=== PATIENT | male | born 1945 | race Caucasian/White ===

== ENCOUNTER → 2019-04-16 | Outpatient (CLI) | payer OTHER, MEDICARE ==
[~2019-04-16] MED LIST: ASPIRIN325 PO; ATORVASTATIN CA40 MG PO; BYDUREON P2 MG/0.65; CELEBREX 200 M200 M1 PO; FLAX SEED OIL1000 MG PO; KLOR-CON 1010 MEQ PO; LASIX 20 MG TAB20 MG PO; LISINOPRIL5 MG PO; LOPRESSOR50 PO; METFORMIN HCL500 MG PO; NORCO 5-325 TA1 EACH PO; PACERONE 200 M200 M1 PO
== END ==
LOC: RAD 07:46
DX: J84.10 Pulmonary fibrosis, unspecified (principal); I77.810 Thoracic aortic ectasia; J98.4 Other disorders of lung

== ENCOUNTER 2020-10-21 12:43 | Inpatient (IN) | payer OTHER, MEDICARE ==
[~2020-10-21] VITALS: Ht 182.9 cm; Wt 85.3 kg
[2020-10-21 12:48] VITALS: BP 126/57
[2020-10-21 14:05] LABS: MCH 31.9 pg (26.0-34.0); MCHC 32.4 g/dL (28.0-37.0); MCV 98.2 fL (80.0-100.0); PLATELET COUNT 184 thou/uL (150-400); RBC 4.38 mil/uL (4.50-6.00); RDW 13.8 % (10.5-14.5); WBC 5.2 thou/uL (4.0-11.0)
[2020-10-21 14:13] LABS: ANION GAP 13 mmol/L (7-16); BUN 33 mg/dL (7-18); CALCIUM 8.4 mg/dL (8.5-10.1); CHLORIDE 102 mmol/L (98-107); CO2 23 mmol/L (21-32); CREATININE 1.2 mg/dL (0.7-1.3); GLUCOSE 168 mg/dL (74-106); POTASSIUM 4.6 mmol/L (3.5-5.1); SODIUM 138 mmol/L (136-145)
[2020-10-21 14:20] LABS: BE(vivo) -3.5 mmol/L (-2 to +3); HCO3 21.1 mmol/L (22.0-26.0); PCO2 36.9 mmHg (35.0-45.0); PO2 61.9 mmHg (80.0-100.0); pH 7.375 (7.360-7.450); sO2 91.4 % (92.0-98.0)
[2020-10-21 14:24] LABS: ALBUMIN 2.2 g/dL (3.4-5.0); MAGNESIUM 2.2 mg/dL (1.8-2.4); SGOT 34 U/L (15-37); SGPT 29 U/L (30-65); TOTAL PROTEIN 6.7 g/dL (6.4-8.2); TROPONIN-I <0.06 ng/mL (<0.06)
--- NOTE | 2020-10-21 14:25 | EKG ---
[facility] [place] [address] ELECTROCARDIOGRAM REPORT Name: RAMOS BENTLEY Room #: [facility]..#: [id number] Admission: 10/21/20 Attend Phys: Discharge: Date of : 45 Report #: [id number] THIS REPORT FOR: cc: Khai Blackman MD, Kirk D. MD Santiago, Patrick MD MERGED WITH [facility] ~ THIS REPORT FOR: //name// [facility] ED Test Date: 2020-10-21 Test Time: 13:46:43 Pat Name: RAMOS BENTLEY Department: Room: Gender: [place] Drawer: [facility] : 1945 Requested By: Rick Fish Order Number: [id number] MD: Ron Chu Measurements Intervals [place] Rate: 83 P: 74 SC: 171 QRS: 54 QRSD: 103 T: 69 QT: 372 QTc: 437 Interpretive Statements Sinus rhythm Probable left atrial enlargement Q's inferior leads Borderline low voltage, extremity leads Compared to ECG 03/07/2015 09:34:13 NO significant changes Electronically Signed On 10-21-2020 14:25:28 DIE TURNER by Ron Chu [email or web address] <ELECTRONICALLY SIGNED> By: Ron Chu MD, FACC 10/21/20 1425 1346 1346 Ron Chu MD, MERGED WITH [facility] /EPI
[2020-10-21 14:46] LABS: PLATELET ESTIMATE NORMAL
[2020-10-21 18:04] VITALS: BP 143/76
[2020-10-21 19:20] VITALS: BP 119/64
[2020-10-21 20:01] VITALS: BP 126/64
[2020-10-22 05:03] VITALS: BP 115/68
[2020-10-22 06:14] LABS: HEMATOCRIT 43.5 % (42.0-52.0); HEMOGLOBIN 13.9 gm/dL (14.0-18.0); MCH 31.7 pg (26.0-34.0); MCHC 31.9 g/dL (28.0-37.0); MCV 99.3 fL (80.0-100.0); RBC 4.38 mil/uL (4.50-6.00); RDW 14.1 % (10.5-14.5); WBC 3.6 thou/uL (4.0-11.0)
[2020-10-22 06:20] LABS: CALCIUM 8.5 mg/dL (8.5-10.1); CREATININE 1.2 mg/dL (0.7-1.3); POTASSIUM 4.9 mmol/L (3.5-5.1)
[2020-10-22 07:36] VITALS: BP 124/57
[2020-10-22 11:28] VITALS: BP 113/62
[2020-10-22 16:12] VITALS: BP 114/57
[2020-10-22 19:49] VITALS: BP 109/68
[2020-10-22 22:07] LABS: BE(vivo) -2.8 mmol/L (-2 to +3); HCO3 22.2 mmol/L (22.0-26.0); PCO2 39.2 mmHg (35.0-45.0); PO2 57.3 mmHg (80.0-100.0); sO2 89.2 % (92.0-98.0)
[2020-10-23 04:34] VITALS: BP 125/67
[2020-10-23 05:16] LABS: BE(vivo) -5.9 mmol/L (-2 to +3); HCO3 20.3 mmol/L (22.0-26.0); PCO2 42.2 mmHg (35.0-45.0); PO2 90.7 mmHg (80.0-100.0); sO2 96.2 % (92.0-98.0)
[2020-10-23 05:17] LABS: pH 7.299 (7.360-7.450)
[2020-10-23 05:19] LABS: CALCIUM 7.9 mg/dL (8.5-10.1); CREATININE 1.2 mg/dL (0.7-1.3); DIRECT BILIRUBIN 0.2 mg/dL (<0.1-0.2); PHOSPHORUS 3.6 mg/dL (2.5-4.9); POTASSIUM 4.2 mmol/L (3.5-5.1); TOTAL BILIRUBIN 0.5 mg/dL (0.2-1.0); TOTAL PROTEIN 6.3 g/dL (6.4-8.2)
[2020-10-23 08:02] VITALS: BP 130/41
[2020-10-23 11:41] LABS: HEMATOCRIT 43.2 % (42.0-52.0); HEMOGLOBIN 13.8 gm/dL (14.0-18.0); MCH 31.8 pg (26.0-34.0); MCHC 32.1 g/dL (28.0-37.0); MCV 99.1 fL (80.0-100.0); RBC 4.36 mil/uL (4.50-6.00); RDW 14.6 % (10.5-14.5); WBC 7.2 thou/uL (4.0-11.0)
--- NOTE | 2020-10-23 11:42 | HC ---
[facility] [place] [address] CONSULTATION Name: RAMOS BENTLEY Room #: 361-P ADM IN M.R.#: [id number] Admission: 10/21/20 Attend Phys: Khai Demarco MD Discharge: Date of : 45 Report #: [id number] THIS REPORT FOR: cc: Khai Blackman MD, Kirk D. MD Barry, Joseph W. MD ~ DATE OF SERVICE: 10/22/2020 INFECTIOUS DISEASE CONSULTATION ATTENDING PHYSICIAN: Dr. Demarco REASON FOR EVALUATION: COVID-19 infection. HISTORY OF PRESENT ILLNESS: Chart reviewed, patient examined. This is a 75-year-old with extensive medical history including O2 requiring COPD, normally on 3 liters as well as widespread vasculopathy, diabetes mellitus, presented to the Emergency Room with a progressive dyspnea. In spite ____ oxygen, he has had cough, notes it started about 2 weeks ago. Had been in contact with his customer support coordinator who had apparently tried some therapy. Due to lack of improvement, he was referred to the Emergency Room. He has apparently not had fevers or chills, just progressive weakness and fatigue. Evaluation was undertaken. Chest x-ray showed multifocal infiltrates. ABGs showed pH 7.375, pO2 of 61.9 on 5 liters. Influenza antigen was negative, was confirmed to have a positive coronavirus antigen as well. Due to his tenuous state, he was admitted, started empirically on therapy with azithromycin, ceftriaxone as well as dexamethasone. ALLERGIES: None known. CURRENT MEDICATIONS: Include azithromycin, ceftriaxone, thiamine, cholecalciferol, zinc, aspirin, lisinopril, atorvastatin, ascorbic acid, metoprolol, enoxaparin, insulin lispro, and dexamethasone. PAST MEDICAL HISTORY: As noted above, has known diabetes mellitus, has vasculopathy with coronary artery disease, hypertension, carotid disease. COPD, O2 requiring. SOCIAL HISTORY: Former smoker. No ethanol. FAMILY HISTORY: Noncontributory. REVIEW OF SYSTEMS: Otherwise, unremarkable. [address] [address] CONSULTATION Name: RAMOS BENTLEY Room #: 361-[facility] IN [facility].#: [id number] Admission: 10/21/20 Attend Phys: Khai Demarco MD Discharge: Date of : 45 Report #: [id number] PHYSICAL EXAMINATION: GENERAL: Appears chronically ill. He is pleasant, cooperative. He is in twnd-lm-nieaogrh distress secondary to his breathing. VITAL SIGNS: Temperature 97.5, pulse 68, respirations 18, blood pressure 113/60. SKIN: Warm, dry, no rashes. HEENT: Normocephalic. Extraocular muscles intact. NECK: Supple. Nasal cannula in place. LUNGS: Diminished breath sounds overall, few scattered crackles at the bases. HEART: Distant, regular. I do not appreciate a murmur. ABDOMEN: Soft, nontender, nondistended. EXTREMITIES: No cyanosis. GENITOURINARY AND RECTAL: Deferred. LABORATORY DATA: Blood cultures are stable thus far. CBC: White count of 3.6, H and H 13.9 and 43.5, platelets of 171. Electrolytes: Sodium 142, potassium 4.9, chloride 105, bicarbonate is 26, anion gap of 11, BUN and creatinine 37 and 1.2. Estimated GFR of 59. Lactic acid 1.5. Confirmed COVID antigen positive. ProBNP 2328. LFTs: Albumin of 2.2. ASSESSMENT: COVID-19 infection, was complicated by ipery-pz-uzdchqv respiratory failure with pneumonitis. This may well be multifactorial, cannot exclude a cardiac component. We will continue empiric therapy. We will adjust treatment. It is not clear what he was on previous to that given his treatment as an outpatient. We will add remdesivir as well to the regimen. He remains quite tenuous. Overall, his prognosis appears guarded. <ELECTRONICALLY SIGNED> By: Sanket Nur MD 10/23/20 1142 1151 0017 Sanket Nur MD /nt
[2020-10-23 11:54] VITALS: BP 128/69
[2020-10-23 15:48] VITALS: BP 127/67
[2020-10-23 19:24] VITALS: BP 117/60
[2020-10-24 02:41] LABS: HEMOGLOBIN 13.7 gm/dL (14.0-18.0); MCH 31.6 pg (26.0-34.0); MCV 98.8 fL (80.0-100.0); RBC 4.35 mil/uL (4.50-6.00); WBC 6.6 thou/uL (4.0-11.0)
[2020-10-24 02:57] LABS: CALCIUM 8.3 mg/dL (8.5-10.1); DIRECT BILIRUBIN 0.2 mg/dL (<0.1-0.2); PHOSPHORUS 3.6 mg/dL (2.5-4.9); TOTAL BILIRUBIN 0.5 mg/dL (0.2-1.0)
[2020-10-24 05:00] VITALS: BP 155/81
[2020-10-24 07:41] VITALS: BP 140/72
[2020-10-24 15:34] VITALS: BP 134/66
[2020-10-24 20:42] VITALS: BP 142/68
[2020-10-25 05:00] VITALS: BP 143/68
[2020-10-25 05:28] LABS: HEMATOCRIT 43.1 % (42.0-52.0); HEMOGLOBIN 14.1 gm/dL (14.0-18.0); MCH 31.9 pg (26.0-34.0); MCHC 32.6 g/dL (28.0-37.0); MCV 97.7 fL (80.0-100.0); RBC 4.42 mil/uL (4.50-6.00); RDW 13.8 % (10.5-14.5); WBC 6.4 thou/uL (4.0-11.0)
[2020-10-25 05:47] LABS: CALCIUM 8.1 mg/dL (8.5-10.1); CREATININE 0.8 mg/dL (0.7-1.3); DIRECT BILIRUBIN 0.3 mg/dL (<0.1-0.2); PHOSPHORUS 2.7 mg/dL (2.5-4.9); POTASSIUM 4.2 mmol/L (3.5-5.1); TOTAL PROTEIN 5.9 g/dL (6.4-8.2)
[2020-10-25 07:07] VITALS: BP 126/56
[2020-10-25 11:21] VITALS: BP 142/78
[2020-10-25 16:07] VITALS: BP 154/54
[2020-10-25 20:28] VITALS: BP 142/57
[2020-10-26 04:08] VITALS: BP 141/78
[2020-10-26 06:22] LABS: HEMATOCRIT 45.5 % (42.0-52.0); HEMOGLOBIN 14.5 gm/dL (14.0-18.0); MCH 31.1 pg (26.0-34.0); MCHC 31.9 g/dL (28.0-37.0); MCV 97.5 fL (80.0-100.0); RBC 4.66 mil/uL (4.50-6.00); RDW 13.8 % (10.5-14.5); WBC 8.3 thou/uL (4.0-11.0)
[2020-10-26 06:43] LABS: ALBUMIN 1.9 g/dL (3.4-5.0); CALCIUM 8.3 mg/dL (8.5-10.1); CREATININE 0.8 mg/dL (0.7-1.3); DIRECT BILIRUBIN 0.3 mg/dL (<0.1-0.2); PHOSPHORUS 2.8 mg/dL (2.5-4.9); POTASSIUM 4.3 mmol/L (3.5-5.1); TOTAL BILIRUBIN 1.1 mg/dL (0.2-1.0)
[2020-10-26 09:27] VITALS: BP 103/81
[2020-10-26 14:47] VITALS: BP 103/81
[2020-10-26 15:17] VITALS: BP 103/81
== END 2020-10-26 15:46 | disposition hospice, home (50) | DRG 871 ==
LOC: ER 12:43 → 3W 16:39 → EROBS 16:39 → 3W 19:25
PROVIDERS: Emergency Medicine; Nurse Practitioner; Specialist; ADMIT Hospitalist; ATTEND Hospitalist
PROC: 5A0935A Assistance with Respiratory Ventilation, Less than 24 Consecutive Hours, High Flow/Velocity Cannula (ICD-10-PCS; principal; 2020-10-21)
PROC: 5A09457 Assistance with Respiratory Ventilation, 24-96 Consecutive Hours, Continuous Positive Airway Pressure (ICD-10-PCS; 2020-10-22)
PROC: XW033E5 Introduction of Remdesivir Anti-infective into Peripheral Vein, Percutaneous Approach, New Technology Group 5 (ICD-10-PCS; 2020-10-22)
PROC: 5A09457 Assistance with Respiratory Ventilation, 24-96 Consecutive Hours, Continuous Positive Airway Pressure (ICD-10-PCS; 2020-10-24)
PROC: 5A0935A Assistance with Respiratory Ventilation, Less than 24 Consecutive Hours, High Flow/Velocity Cannula (ICD-10-PCS; 2020-10-24)
PROC: 5A0935A Assistance with Respiratory Ventilation, Less than 24 Consecutive Hours, High Flow/Velocity Cannula (ICD-10-PCS; 2020-10-26)
PROC: 5A09357 Assistance with Respiratory Ventilation, Less than 24 Consecutive Hours, Continuous Positive Airway Pressure (ICD-10-PCS; 2020-10-26)
DX: A41.89 Other specified sepsis (principal); U07.1 COVID-19; J12.89 Other viral pneumonia; J96.21 Acute and chronic respiratory failure with hypoxia; J44.0 Chronic obstructive pulmonary disease with (acute) lower respiratory infection; E87.0 Hyperosmolality and hypernatremia; E11.9 Type 2 diabetes mellitus without complications; I10 Essential (primary) hypertension; E78.00 Pure hypercholesterolemia, unspecified; E78.5 Hyperlipidemia, unspecified; I25.10 Atherosclerotic heart disease of native coronary artery without angina pectoris; Z96.653 Presence of artificial knee joint, bilateral; Z66 Do not resuscitate; Z51.5 Encounter for palliative care; Z95.1 Presence of aortocoronary bypass graft; Z95.5 Presence of coronary angioplasty implant and graft; Z90.49 Acquired absence of other specified parts of digestive tract; Z79.84 Long term (current) use of oral hypoglycemic drugs; Z79.899 Other long term (current) drug therapy; Z87.891 Personal history of nicotine dependence
CPT/HCPCS: 10879